=== PATIENT | female | born 1950 | race Caucasian/White ===

== ENCOUNTER 2017-07-02 12:49 | Inpatient (IN) | payer OTHER, MEDICAID ==
[2017-07-02 15:12] VITALS: BMI 44.1
[2017-07-02 15:37] LABS: BASOPHILS # (AUTO) 0.1 X10^3/uL (0.0-0.1); BASOPHILS % (AUTO) 1.6 % (0.2-1.0); EOSINOPHILS # (AUTO) 0.3 x10^3/uL (0.0-0.2); EOSINOPHILS % (AUTO) 4.1 % (0.9-2.9); HEMATOCRIT 37.4 % (36.0-47.0); HEMOGLOBIN 12.5 g/dL (12.0-16.0); LYMPHOCYTES # (AUTO) 1.5 X10^3/uL (1.3-2.9); LYMPHOCYTES % (AUTO) 22.7 % (21.0-51.0); MEAN CORPUSCULAR HGB CONC 33.5 g/dL (33.0-35.0); MEAN CORPUSCULAR VOLUME 92.5 fL (80.0-100.0); MEAN PLATELET VOLUME 9.2 fL (7.4-11.0); MONOCYTES # (AUTO) 0.7 x10^3/uL (0.3-0.8); MONOCYTES % (AUTO) 9.5 % (0.0-13.0); NEUTROPHILS # (AUTO) 4.2 x10^3/uL (2.2-4.8); NEUTROPHILS % (AUTO) 62.1 % (42.0-75.0); PLATELET COUNT 217 X10^3/uL (150.0-450.0); RED BLOOD COUNT 4.05 X10^6/uL (3.5-5.4); RED CELL DISTRIBUTION WIDTH 13.6 % (11.6-16.5); WHITE BLOOD COUNT 6.8 X10^3/uL (3.6-10.0)
[2017-07-02 15:42] LABS: ALANINE AMINOTRANSFERASE 30 Units/L (12-78); ALBUMIN 3.5 g/dL (3.4-5.0); ALKALINE PHOSPHATASE 38 Units/L (46-116); ASPARTATE AMINO TRANSFERASE 19 Units/L (15-37); BLOOD UREA NITROGEN 21 mg/dL (7-18); CALCIUM 9.2 mg/dL (8.5-10.1); CARBON DIOXIDE 33.5 mmol/L (21-32); CHLORIDE 104 mmol/L (98-107); CREATININE 1.48 mg/dL (0.55-1.02); SODIUM 141 mmol/L (136-145); TOTAL PROTEIN 6.9 g/dL (6.4-8.2); eGFR BLACK RACES 45 (>60); eGFR NON BLACK RACES 38 (>60)
[2017-07-02] MEDS ORDERED: TEFLARO IV SCH (16:00)
[2017-07-02] MEDS: NS 1000 ML 1,000 ML IV SCH (16:04)
[2017-07-02] MEDS: TEFLARO 600 MG in NS 50 ML IV 50 ML IV SCH (16:04)
--- NOTE | 2017-07-02 16:07 | RAD ---
HISTORY: Shortness of breath Study: Portable chest Comparison: None Findings: The trachea is midline. The cardiac silhouette is unremarkable. The lungs are clear without focal i nfiltrate or effusion. The bony thorax is unremarkable. IMPRESSION: 1. No acute cardiopulmonary disease. Reported By:
[2017-07-02 18:30] LABS: BILIRUBIN,URINE NEGATIVE (NEGATIVE); BLOOD/HEMOGLOBIN,URINE NEGATIVE (NEGATIVE); GLUCOSE, URINE NEGATIVE (NEGATIVE); KETONES,URINE NEGATIVE (NEGATIVE); LEUKOCYTE ESTERASE ,URINE 1+ (NEGATIVE); NITRITES,URINE NEGATIVE (NEGATIVE); PROTEIN,URINE 1+ (NEGATIVE); UROBILINOGEN,URINE NORMAL (NORMAL)
[2017-07-02 18:37] LABS: APPEARANCE,URINE HAZY (CLEAR); BACTERIA,URINE TRACE /HPF (NEGATIVE); COLOR,URINE YELLOW (YELLOW); MUCUS,URINE FEW /HPF (NEGATIVE); RBC,URINE 0 /HPF (NEGATIVE); SQUAMOUS EPITHELIAL CELL,UR RARE /HPF (NEGATIVE)
[2017-07-03] MEDS: NS 1000 ML 1,000 ML IV SCH ×2 (04:38→17:08)
[2017-07-03 05:35] LABS: BASOPHILS # (AUTO) 0.1 X10^3/uL (0.0-0.1); BASOPHILS % (AUTO) 1.2 % (0.2-1.0); EOSINOPHILS # (AUTO) 0.3 x10^3/uL (0.0-0.2); EOSINOPHILS % (AUTO) 4.5 % (0.9-2.9); HEMATOCRIT 37.1 % (36.0-47.0); HEMOGLOBIN 12.2 g/dL (12.0-16.0); LYMPHOCYTES # (AUTO) 1.5 X10^3/uL (1.3-2.9); LYMPHOCYTES % (AUTO) 22.3 % (21.0-51.0); MEAN CORPUSCULAR HEMOGLOBIN 31.3 pg (27.0-34.0); MEAN PLATELET VOLUME 9.3 fL (7.4-11.0); MONOCYTES # (AUTO) 0.7 x10^3/uL (0.3-0.8); MONOCYTES % (AUTO) 9.9 % (0.0-13.0); NEUTROPHILS # (AUTO) 4.1 x10^3/uL (2.2-4.8); NEUTROPHILS % (AUTO) 62.1 % (42.0-75.0); PLATELET COUNT 182 X10^3/uL (150.0-450.0); RED BLOOD COUNT 3.91 X10^6/uL (3.5-5.4); RED CELL DISTRIBUTION WIDTH 13.4 % (11.6-16.5); WHITE BLOOD COUNT 6.6 X10^3/uL (3.6-10.0)
[2017-07-03] MEDS ORDERED: NORCO 7.5/325 MG TAB PO PRN ×2 (05:53→11:32)
[2017-07-03 05:54] LABS: ALBUMIN 3.2 g/dL (3.4-5.0); CALCIUM 8.7 mg/dL (8.5-10.1); COR CA(FOR HYPOALB) 9.3 mg/dL (8.5-10.1); CREATININE 1.57 mg/dL (0.55-1.02); TOTAL PROTEIN 6.4 g/dL (6.4-8.2)
[2017-07-03] MEDS: TEFLARO 600 MG in NS 50 ML IV 50 ML IV SCH ×2 (09:14→21:03)
[2017-07-03] MEDS ORDERED: PREVNAR 13 IM ONE (11:03)
[2017-07-03] MEDS ORDERED: AFLURIA IM ONE (11:03)
[2017-07-03] MEDS ORDERED: ATARAX TAB 25 MG PO PRN (11:32)
[2017-07-03] MEDS ORDERED: [UNRECOGNIZED DRUG - OTHER] PO SCH (11:45)
[2017-07-03] MEDS ORDERED: CALCIUM CARBONATE PO SCH (11:45)
[2017-07-03] MEDS ORDERED: MAGNESIUM PO SCH (11:45)
[2017-07-03] MEDS ORDERED: ASPIRIN PO SCH (11:45)
[2017-07-03] MEDS ORDERED: PAROXETINE HCL 30 MG PO SCH (11:45)
[2017-07-03] MEDS ORDERED: Atrovent NEB TX 0.02% NEB SCH (12:00)
[2017-07-03] MEDS: DUONEB 0.5 MG/3 MG NEB SCH ×2 (12:00→17:51)
[2017-07-03] MEDS ORDERED: PROVENTIL NEB TX 0.083% 2.5MG/ 3ML NEB SCH ×2 (12:00)
[2017-07-03] MEDS: ZETIA TAB 10 MG PO SCH (13:06)
[2017-07-03] MEDS: FOLIC ACID TAB 1 MG PO SCH (13:06)
[2017-07-03] MEDS: COZAAR PO SCH (13:06)
[2017-07-03] MEDS: COREG TAB 6.25 MG PO SCH ×2 (13:06→21:02)
[2017-07-03] MEDS: SYNTHROID 175 mcg TAB PO SCH (13:07)
[2017-07-03] MEDS: NexIUM PO SCH (13:07)
--- NOTE | 2017-07-03 14:35 | DR.H&P ---
H&P - History & Physical for Day of: H&P Date: 07/02/17 - Chief Complaint Chief Complaint: lle cellulitis - Allergies Allergies/Adverse Reactions: Allergies Allergy/AdvReac Type Severity Reaction Status Date / Time No Known Drug Allergies Allergy Verified 07/02/17 14:39 - History of Present Illness History of Present Illness: 66 white female patient of Dr. Flores's private practice who was admitted after failing to improve with outpatient therapy for left lower extremity cellulitis. Patient has localized redness and edema to left lower ankle coming up to left calf. Patient has a history of COPD and neuropathy patient denies any cardiac history and has stable blood pressure. Patient admitted for further evaluation of cellulitis including blood cultures and treatment with IV antibiotics. - Past Medical History Past Medical History: Arthritis, COPD, Hypertension - Past Surgical History Surgical History: QA SPECIALIST Surgery, Hysterectomy - Family History Family Medical History: Heart Failure, Hypertension - Social History Does patient currently use any type of tobacco product: No Have you used tobacco products in the last 12 months: No Type of Tobacco Use: Cigarettes Does any household member use tobacco: Yes Alcohol Use: None Drug Use: Prescription Drugs - Medications Home Medications: Albuterol Neb 2.5MG/ 3Ml [ALBUTEROL NEB 2.5MG/ 3ML *] 1 amb NEB Q6RESP 07/02/17 [History Confirmed 07/02/17] Aspirin/Calcium Carbonate/Mag [Aspirin Buffered 325 mg Tab] 1 tab PO DAILY 07/02 [History Confirmed 07/02/17] Carvedilol [COREG TAB 6.25 MG *] 1 tab PO BID 07/02/17 [History Confirmed ] Ergocalciferol (Vitamin D2) [Vitamin D2] 1 tab PO QMONTH 07/02/17 [History Confirmed 07/02/17] Esomeprazole Magnesium [NEXIUM 40 MG *] 1 tab PO DAILY 07/02/17 [History Confirmed 07/02/17] Ezetimibe [ZETIA 10 MG *] 1 tab PO DAILY 07/02/17 [History Confirmed 07/02/17] Fenofibrate [TRICOR 145 MG *] 1 tab PO HS 07/02/17 [History Confirmed 07/02/17] Folic Acid [FOLIC ACID TAB 1 MG *] 1 mg PO DAILY 07/02/17 [History Confirmed ] Gabapentin [NEURONTIN CAP 100 MG *] 200 mg PO HS 07/02/17 [History Confirmed ] Hydrocodone/Acetaminophen [Hydrocodon-Acetaminoph 7.5-325] 1 tab PO BID PRN [History Confirmed 07/02/17] Hydroxyzine HCl 25 mg Tab [ATARAX *] 25 mg PO Q4-8H PRN 07/02/17 [History Confirmed 07/02/17] Ipratropium Egan 1 amb NEB Q6RESP 07/02/17 [History Confirmed 07/02/17] Levothyroxine Sodium [SYNTHROID 175 mcg *] 1 tab PO DAILY 07/02/17 [History Confirmed 07/02/17] Losartan Potassium [LOSARTAN POTASSIUM 50 MG *] 50 mg PO DAILY 07/02/17 [ History Confirmed 07/02/17] Montelukast Sodium [SINGULAIR TAB 10 MG *] 10 mg PO HS 07/02/17 [History Confirmed 07/02/17] Paroxetine HCl 30 mg PO DAILY 07/02/17 [History Confirmed 07/02/17] Quetiapine Fumarate [SEROQUEL 100 MG *] 100 mg PO HS 07/02/17 [History Confirmed 07/02/17] Simvastatin [ZOCOR 20 MG *] 1 tab PO HS 07/02/17 [History Confirmed 07/02/17] Travoprost [TRAVATAN Z (OPHTH) 0.004 % 2.5 ML *] 1 drops EACHEYE HS 07/02/17 [ History Confirmed 07/02/17] - Review of Systems Constitutional: Chills Eyes: No Symptoms Reported ENT: No Symptoms Reported Respiratory: Shortness of Breath, Wheezing Cardiovascular: No Symptoms Reported Gastrointestinal: No Symptoms Reported Genitourinary: No Symptoms Reported Musculoskeletal: Leg Pain Skin: Rash Neurological: No Symptoms Reported - Physical Exam Vital Signs: Temperature 98.6 F Pulse Rate [Right Brachial] 60 Respiratory Rate 20 Blood Pressure [Right Arm] 162/70 O2 Sat by Pulse Oximetry 97 Oriented: Normal Eyes: Normal Ear: Normal Nose: Normal Throat: Normal Respiratory: RLL Diminished, LLL Diminished Cardiovascular: Normal : Normal Auscultation: Bowel Sounds: Normal Palpation: Normal Tenderness: Normal Skin: Red, Tender (LLE), Hot Mood Description: Calm Speech Pattern: Clear, Appropriate - Assessment/Plan (1) Cellulitis, leg Qualifiers: Laterality: left Qualified Code(s): L03.116 - Cellulitis of left lower limb Status: Acute Plan: BLOOD CULTURES, CBC CMP. IV ATBX, REPEAT AM LABS (2) COPD (chronic obstructive pulmonary disease) Status: Acute Plan: RESP CONSULT
--- NOTE | 2017-07-03 14:40 | PCM.PROG ---
Progress Note - Progress Note for Day of Date: 07/03/17 - Subjective Subjective: 66-year-old white female admitted 1 day ago with left lower extremity cellulitis. Patient has been receiving IV antibiotics, teflaro with improved rEDNESS THIS a.m. Patient's blood cultures are still pending. We'll P repeat a.m. labs and continue current plan therapy. - Past Medical Family Social History Past Med/Fam/Surg Hx: No changes since H&P Allergies: Allergies No Known Drug Allergies Allergy (Verified 07/02/17 14:39) - Review of Systems ROS: No change since H&P - Vital Signs and I&O's Vital Signs: Temperature 98.6 F Pulse Rate [Right Brachial] 60 Respiratory Rate 20 Blood Pressure [Right Arm] 162/70 O2 Sat by Pulse Oximetry 97 Intake and Output: Intake & Output 07/01/17 07/02/17 07/03/17 07/04/17 11:59 11:59 11:59 11:59 Intake Total 1078 Output Total 0 Balance 1078 - Physical Exam Oriented: Normal Eyes: Normal Ear: Normal Nose: Normal Throat: Normal Respiratory: Diminished Cardiovascular: Normal : Normal Auscultation: Bowel Sounds: Normal Tenderness: Normal Skin: Red, Tender (LLE), Hot Mood Description: Calm Speech Pattern: Clear, Appropriate - Laboratory and Diagnostics Result Diagrams: 07/03/17 04:05 07/03/17 04:05 Labs: Laboratory WBC 6.6 X10^3/uL (3.6-10.0) 07/03/17 04:05 RBC 3.91 X10^6/uL (3.5-5.4) 07/03/17 04:05 Hgb 12.2 g/dL (12.0-16.0) 07/03/17 04:05 Hct 37.1 % (36.0-47.0) 07/03/17 04:05 MCV 95.0 fL (80.0-100.0) 07/03/17 04:05 MCH 31.3 pg (27.0-34.0) 07/03/17 04:05 MCHC 33.0 g/dL (33.0-35.0) 07/03/17 04:05 RDW 13.4 % (11.6-16.5) 07/03/17 04:05 Plt Count 182 X10^3/uL (150.0-450.0) 07/03/17 04:05 MPV 9.3 fL (7.4-11.0) 07/03/17 04:05 Neut % 62.1 % (42.0-75.0) 07/03/17 04:05 Lymph % 22.3 % (21.0-51.0) 07/03/17 04:05 Wright % 9.9 % (0.0-13.0) 07/03/17 04:05 Eos % 4.5 % (0.9-2.9) H 07/03/17 04:05 Baso % 1.2 % (0.2-1.0) H 07/03/17 04:05 Neut # 4.1 x10^3/uL (2.2-4.8) 07/03/17 04:05 Lymph # 1.5 X10^3/uL (1.3-2.9) 07/03/17 04:05 Wright # 0.7 x10^3/uL (0.3-0.8) 07/03/17 04:05 Eos # 0.3 x10^3/uL (0.0-0.2) H 07/03/17 04:05 Baso # 0.1 X10^3/uL (0.0-0.1) 07/03/17 04:05 Absolute Nucleated RBC 0.0 /100WBC 07/03/17 04:05 Sodium 142 mmol/L (136-145) 07/03/17 04:05 Corrected Sodium 142 mmol/L (136-145) 07/03/17 04:05 Potassium 4.0 mmol/L (3.5-5.1) 07/03/17 04:05 Chloride 106 mmol/L (98-107) 07/03/17 04:05 Carbon Dioxide 32.0 mmol/L (21-32) 07/03/17 04:05 BUN 21 mg/dL (7-18) H 07/03/17 04:05 Creatinine 1.57 mg/dL (0.55-1.02) H 07/03/17 04:05 Est GFR (MDRD) Af Amer 42 (>60) L 07/03/17 04:05 Est GFR (MDRD) Non-Af 35 (>60) L 07/03/17 04:05 Glucose 111 mg/dL (65-99) H 07/03/17 04:05 Calcium 8.7 mg/dL (8.5-10.1) 07/03/17 04:05 Corrected Calcium 9.3 mg/dL (8.5-10.1) 07/03/17 04:05 Total Bilirubin 0.20 mg/dL (0.2-1.0) 07/03/17 04:05 AST 18 Units/L (15-37) 07/03/17 04:05 ALT 27 Units/L (12-78) 07/03/17 04:05 Alkaline Phosphatase 36 Units/L (46-116) L 07/03/17 04:05 Total Protein 6.4 g/dL (6.4-8.2) 07/03/17 04:05 Albumin 3.2 g/dL (3.4-5.0) L 07/03/17 04:05 Globulin 3.2 g/dL (2.5-4.5) 07/03/17 04:05 Albumin/Globulin Ratio 1.0 Ratio (1.1-2.1) L 07/03/17 04:05 Specimen Type Clean catch urine 07/02/17 18:19 Urine Color Yellow (YELLOW) 07/02/17 18:19 Urine Appearance Hazy (CLEAR) 07/02/17 18:19 Urine pH 5.0 (5.0 - 8.0) 07/02/17 18:19 Ur Specific [place] 1.015 (1.000-1.030) 07/02/17 18:19 Urine Protein 1+ (NEGATIVE) 07/02/17 18:19 Urine Glucose (UA) Negative (NEGATIVE) 07/02/17 18:19 Urine Ketones Negative (NEGATIVE) 07/02/17 18:19 Urine Occult Blood Negative (NEGATIVE) 07/02/17 18:19 Urine Nitrite Negative (NEGATIVE) 07/02/17 18:19 Urine Bilirubin Negative (NEGATIVE) 07/02/17 18:19 Urine Urobilinogen Normal (NORMAL) 07/02/17 18:19 Ur Leukocyte Esterase 1+ (NEGATIVE) 07/02/17 18:19 Urine RBC 0 /HPF (NEGATIVE) 07/02/17 18:19 Urine WBC 0-3 /HPF (NEGATIVE) 07/02/17 18:19 Ur Squamous Epith Cells Rare /HPF (NEGATIVE) 07/02/17 18:19 Urine Bacteria Trace /HPF (NEGATIVE) 07/02/17 18:19 Urine Mucus Few /HPF (NEGATIVE) 07/02/17 18:19 Ur Culture Indicated? No/not indicated 07/02/17 18:19 - Plan (1) Cellulitis, leg Status: Acute Qualifiers: Laterality: left Qualified Code(s): L03.116 - Cellulitis of left lower limb Plan: BLOOD CULTURES, CBC CMP. IV ATBX, REPEAT AM LABS. VASCULAR STUDIES, RAVI' S (2) COPD (chronic obstructive pulmonary disease) Status: Acute Plan: RESP CONSULT
[2017-07-03] MEDS ORDERED: SINGULAIR TAB 10 MG PO SCH (21:00)
[2017-07-03] MEDS ORDERED: ZOCOR TAB 20 MG PO SCH (21:00)
[2017-07-03] MEDS ORDERED: NEURONTIN CAP 100 MG PO SCH (21:00)
[2017-07-03] MEDS ORDERED: TRICOR TAB 145 MG PO SCH (21:00)
[2017-07-03] MEDS ORDERED: TRAVATAN Z EACHEYE SCH (21:00)
[2017-07-03] MEDS ORDERED: SEROquel TAB 100 MG PO SCH (21:00)
[2017-07-04] MEDS: DUONEB 0.5 MG/3 MG NEB SCH ×2 (00:10→05:23)
[2017-07-04] MEDS: NS 1000 ML 1,000 ML IV SCH (05:47)
[2017-07-04 06:34] LABS: CALCIUM 8.8 mg/dL (8.5-10.1); CARBON DIOXIDE 31.9 mmol/L (21-32); COR CA(FOR HYPOALB) 9.6 mg/dL (8.5-10.1); CREATININE 1.29 mg/dL (0.55-1.02); TOTAL PROTEIN 6.1 g/dL (6.4-8.2)
[2017-07-04 06:40] LABS: BASOPHILS # (AUTO) 0.1 X10^3/uL (0.0-0.1); EOSINOPHILS # (AUTO) 0.3 x10^3/uL (0.0-0.2); EOSINOPHILS % (AUTO) 3.9 % (0.9-2.9); HEMATOCRIT 36.1 % (36.0-47.0); HEMOGLOBIN 11.8 g/dL (12.0-16.0); LYMPHOCYTES # (AUTO) 1.3 X10^3/uL (1.3-2.9); LYMPHOCYTES % (AUTO) 19.8 % (21.0-51.0); MEAN CORPUSCULAR HGB CONC 32.8 g/dL (33.0-35.0); MEAN CORPUSCULAR VOLUME 94.4 fL (80.0-100.0); MEAN PLATELET VOLUME 9.6 fL (7.4-11.0); MONOCYTES # (AUTO) 0.6 x10^3/uL (0.3-0.8); MONOCYTES % (AUTO) 8.6 % (0.0-13.0); NEUTROPHILS # (AUTO) 4.3 x10^3/uL (2.2-4.8); NEUTROPHILS % (AUTO) 66.7 % (42.0-75.0); PLATELET COUNT 141 X10^3/uL (150.0-450.0); RED BLOOD COUNT 3.82 X10^6/uL (3.5-5.4); RED CELL DISTRIBUTION WIDTH 13.8 % (11.6-16.5); WHITE BLOOD COUNT 6.5 X10^3/uL (3.6-10.0)
[2017-07-04 07:21] LABS: PLATELET MORPHOLOGY COMMENT NORMAL (NORMAL)
[2017-07-04] MEDS: NexIUM PO SCH (08:45)
[2017-07-04] MEDS: FOLIC ACID TAB 1 MG PO SCH (08:45)
[2017-07-04] MEDS: ZETIA TAB 10 MG PO SCH (08:45)
[2017-07-04] MEDS: SYNTHROID 175 mcg TAB PO SCH (08:45)
[2017-07-04] MEDS: COZAAR PO SCH (08:45)
[2017-07-04] MEDS: COREG TAB 6.25 MG PO SCH (08:45)
[2017-07-04] MEDS: TEFLARO 600 MG in NS 50 ML IV 50 ML IV SCH (08:46)
[2017-07-04] MEDS ORDERED: PAXIL PO SCH (09:00)
[2017-07-04] MEDS ORDERED: ASPIRIN PO SCH (09:00)
[2017-07-04 14:07] VITALS: BP 134/78
--- NOTE | 2017-07-04 15:12 | VAS ---
HISTORY: Left lower extremity cellulitis Study: Arterial Doppler ultrasound of the lower extremity Comparison: None Technique: Multiple michel scale and color flow Doppler images of the right and left lower extremity ar terial system were obtained. Interrogation of the common femoral artery, superficial femoral artery, popliteal artery, and tibial arteries was performed. Findings: Triphasic waveforms are seen throughout the right and left lower extremity from the common femoral ar terial system to the tibial runoff. No doubling or tripling of velocities are appreciated to suggest tendon and fluid significant stenosis. No sonographic evidence of occlusive thrombus is appreciated. IMPRESSION: 1. Unremarkable sonographic evaluation of the right and left lower extremity arterial system as note d above. Reported By:
== END 2017-07-04 14:43 | disposition home health service (06) | DRG 603 ==
LOC: MED/SURG 12:49
PROVIDERS: ADMIT Internal Medicine; ATTEND Internal Medicine
PROC: 3E0234Z Introduction of Serum, Toxoid and Vaccine into Muscle, Percutaneous Approach (ICD-10-PCS; principal; 2017-07-03)
DX: L03.116 Cellulitis of left lower limb (principal); R60.0 Localized edema; J44.9 Chronic obstructive pulmonary disease, unspecified; M13.89 Other specified arthritis, multiple sites; I10 Essential (primary) hypertension; I80.8 Phlebitis and thrombophlebitis of other sites; R26.89 Other abnormalities of gait and mobility; R13.11 Dysphagia, oral phase; Z23 Encounter for immunization
CPT/HCPCS: 36415; 71010; 80053; 81001; 85025; 87040; 90686; 93925; 94760; A4216; A4222; 90670; J0712; J7620

== ENCOUNTER 2021-05-03 15:08 | Inpatient (IN) ==
[2021-05-03] MEDS ORDERED: NS 1000 ML 1,000 ML IV ONE (16:27)
[2021-05-03] MEDS: NS 1000 ML 1,000 ML IV SCH (17:12)
[2021-05-03 17:14] LABS: BASOPHILS # (AUTO) 0.2 X10^3/uL (0.0-0.1); BASOPHILS % (AUTO) 0.7 % (0.2-1.0); EOSINOPHILS # (AUTO) 0.3 x10^3/uL (0.0-0.2); EOSINOPHILS % (AUTO) 1.1 % (0.9-2.9); HEMATOCRIT 38.2 % (36.0-47.0); HEMOGLOBIN 12.4 g/dL (12.0-16.0); LYMPHOCYTES # (AUTO) 2.8 X10^3/uL (1.3-2.9); LYMPHOCYTES % (AUTO) 12.4 % (21.0-51.0); MEAN CORPUSCULAR HEMOGLOBIN 30.7 pg (27.0-34.0); MEAN CORPUSCULAR HGB CONC 32.6 g/dL (33.0-35.0); MEAN CORPUSCULAR VOLUME 94.3 fL (80.0-100.0); MONOCYTES % (AUTO) 8.5 % (0.0-13.0); NEUTROPHILS # (AUTO) 17.6 x10^3/uL (2.2-4.8); NEUTROPHILS % (AUTO) 77.3 % (42.0-75.0); PLATELET COUNT 285 X10^3/uL (150.0-450.0); RED BLOOD COUNT 4.05 X10^6/uL (3.5-5.4); RED CELL DISTRIBUTION WIDTH 14.2 % (11.6-16.5); WHITE BLOOD COUNT 22.8 X10^3/uL (3.6-10.0)
[2021-05-03 17:20] LABS: BILIRUBIN,URINE NEGATIVE (NEGATIVE); BLOOD/HEMOGLOBIN,URINE NEGATIVE (NEGATIVE); GLUCOSE, URINE NEGATIVE (NEGATIVE); KETONES,URINE NEGATIVE (NEGATIVE); LEUKOCYTE ESTERASE ,URINE NEGATIVE (NEGATIVE); NITRITES,URINE NEGATIVE (NEGATIVE); PROTEIN,URINE NEGATIVE (NEGATIVE); UROBILINOGEN,URINE NORMAL (NORMAL)
[2021-05-03 17:21] LABS: APPEARANCE,URINE CLEAR (CLEAR); COLOR,URINE STRAW (YELLOW)
[2021-05-03 17:27] LABS: ALANINE AMINOTRANSFERASE 25 Units/L (12-78); ALBUMIN 3.5 g/dL (3.4-5.0); ALKALINE PHOSPHATASE 55 Units/L (46-116); ASPARTATE AMINO TRANSFERASE 13 Units/L (15-37); BLOOD UREA NITROGEN 14 mg/dL (7-18); CALCIUM 9.4 mg/dL (8.5-10.1); CARBON DIOXIDE 32.4 mmol/L (21-32); CHLORIDE 104 mmol/L (98-107); SODIUM 142 mmol/L (136-145); TOTAL PROTEIN 6.9 g/dL (6.4-8.2); eGFR NON BLACK RACES 43 (>60)
[2021-05-03 17:48] LABS: PLATELET MORPHOLOGY COMMENT NORMAL (NORMAL)
--- NOTE | 2021-05-03 17:53 | DR.H&P ---
H&P - History & Physical for Day of: H&P Date: 05/03/21 - Chief Complaint Chief Complaint: dehydration, weakness - History of Present Illness History of Present Illness: The patient is a 70 year old female that is a direct admit per Dr. Flores's office. Patient was discharged Saturday from [facility] secondary to sialidenitis. Patient reports that she was told that she was to stay for several more days for more antibiotic therapy but was later discharged. Reports that she has been having difficulty swallowing. Reports severe mouth pain and dehydration. Reports that she has been able to drink by mouth but is unable to tolerate food by mouth. Does complain of severe weakness. Reports that her blood pressures have been elevated at home. BP in office was 185/100. PMH of COPD, CHF, obesity and diabetes. Will be admitted for further evaluation. - Past Medical History Past Medical History: Arthritis, COPD, Hypertension - Past Surgical History Surgical History: STE[employer] TOE [employer]ERTER Surgery, Hysterectomy, Thyroidectomy, Other - Family History Family Medical History: Cancer - Social History Does patient currently use any type of tobacco product: No Have you used tobacco products in the last 12 months: No Type of Tobacco Use: None Does any household member use tobacco: No Alcohol Use: None Drug Use: None - Medications Home Medications: No Known Drug Allergies Allergy (Verified 07/02/17 14:39) - Review of Systems Constitutional: See HPI Eyes: See HPI ENT: See HPI, Ear Pain, Mouth Pain, Throat Pain Respiratory: See HPI Cardiovascular: See HPI Gastrointestinal: See HPI Genitourinary: See HPI Musculoskeletal: See HPI Skin: See HPI Neurological: See HPI - Physical Exam Vital Signs: Temperature 98.1 F Pulse Rate [Left Radial] 60 Respiratory Rate 23 Blood Pressure [Right Arm] 142/79 O2 Sat by Pulse Oximetry 96 Oriented: Normal Eyes: Normal Ear: Normal Nose: Normal Throat: Red Respiratory: Clear Throughout Cardiovascular: Normal : Normal Auscultation: Bowel Sounds: Normal Palpation: Normal Tenderness: Normal Skin: Decreased Turgur Musculoskeletal: Normal Psychiatric: Depression Mood Description: Calm, Appropriate Affect: Flat Speech Pattern: Clear - Assessment/Plan (1) Dehydration Status: Acute (2) Weakness Status: Acute - Allergies Allergies/Adverse Reactions: Allergies Allergy/AdvReac Type Severity Reaction Status Date / Time No Known Drug Allergies Allergy Verified 07/02/17 14:39
[2021-05-03] MEDS: INVANZ INJ 1 GM VIAL 1 GM in NS 100 ML IV + SPIKE MINIBAG* 100 ML IV SCH (18:28)
[2021-05-03] MEDS ORDERED: DUONEB 0.5 MG/3 MG (3 mL) NEB PRN (18:33)
[2021-05-04] MEDS: TYLENOL 325 MG TAB PO PRN ×2 (02:03→21:44)
[2021-05-04] MEDS: NS 1000 ML 1,000 ML IV SCH ×4 (02:07→19:37)
[2021-05-04] MEDS: INVANZ INJ 1 GM VIAL 1 GM in NS 100 ML IV + SPIKE MINIBAG* 100 ML IV SCH (08:54)
[2021-05-04] MEDS ORDERED: BUSPAR PO PRN (09:32)
[2021-05-04 10:11] LABS: BASOPHILS # (AUTO) 0.1 X10^3/uL (0.0-0.1); BASOPHILS % (AUTO) 0.8 % (0.2-1.0); EOSINOPHILS # (AUTO) 0.3 x10^3/uL (0.0-0.2); EOSINOPHILS % (AUTO) 2.1 % (0.9-2.9); HEMOGLOBIN 11.6 g/dL (12.0-16.0); LYMPHOCYTES # (AUTO) 1.8 X10^3/uL (1.3-2.9); LYMPHOCYTES % (AUTO) 12.9 % (21.0-51.0); MEAN PLATELET VOLUME 8.8 fL (7.4-11.0); MONOCYTES # (AUTO) 1.3 x10^3/uL (0.3-0.8); MONOCYTES % (AUTO) 9.3 % (0.0-13.0); NEUTROPHILS # (AUTO) 10.5 x10^3/uL (2.2-4.8); NEUTROPHILS % (AUTO) 74.9 % (42.0-75.0); PLATELET COUNT 181 X10^3/uL (150.0-450.0); RED BLOOD COUNT 3.73 X10^6/uL (3.5-5.4); RED CELL DISTRIBUTION WIDTH 14.1 % (11.6-16.5)
[2021-05-04 10:31] LABS: ALANINE AMINOTRANSFERASE 24 Units/L (12-78); ALKALINE PHOSPHATASE 46 Units/L (46-116); ASPARTATE AMINO TRANSFERASE 19 Units/L (15-37); BLOOD UREA NITROGEN 10 mg/dL (7-18); CALCIUM 8.6 mg/dL (8.5-10.1); CARBON DIOXIDE 31.2 mmol/L (21-32); CHLORIDE 108 mmol/L (98-107); COR CA(FOR HYPOALB) 9.4 mg/dL (8.5-10.1); CREATININE 1.14 mg/dL (0.55-1.02); SODIUM 143 mmol/L (136-145); TOTAL PROTEIN 5.8 g/dL (6.4-8.2); eGFR NON BLACK RACES 50 (>60)
[2021-05-04 10:39] VITALS: BMI 40.2
[2021-05-04] MEDS: COREG TAB 6.25 MG PO SCH ×2 (10:39→21:41)
[2021-05-04] MEDS ORDERED: DUONEB 0.5 MG/3 MG (3 mL) NEB ONE (12:00)
[2021-05-04] MEDS: DUONEB 0.5 MG/3 MG (3 mL) NEB SCH ×3 (12:12→21:05)
[2021-05-04] MEDS: PROTONIX INJ 40 MG VIAL IVP SCH ×2 (14:37→21:42)
[2021-05-04] MEDS: LOVENOX INJ 40 MG SYR SC SCH (14:37)
[2021-05-04] MEDS: NYSTATIN SUSP PO SCH ×3 (14:37→21:41)
[2021-05-04] MEDS: DIFLUCAN 100 MG IV (MIX by PHARMACY)* 100 MG/50 ML BAG IV SCH (14:37)
[2021-05-04] MEDS: NORCO 7.5/325 MG TAB PO PRN (15:12)
[2021-05-04] MEDS: CLARITIN PO SCH (21:41)
[2021-05-04] MEDS: SINGULAIR TAB 10 MG PO SCH (21:42)
[2021-05-04] MEDS: TRICOR TAB 145 MG PO SCH (21:42)
[2021-05-04] MEDS: ZOCOR TAB 20 MG PO SCH (21:42)
[2021-05-05] MEDS: NORCO 7.5/325 MG TAB PO PRN ×2 (02:33→16:18)
[2021-05-05 06:34] LABS: BASOPHILS # (AUTO) 0.1 X10^3/uL (0.0-0.1); EOSINOPHILS # (AUTO) 0.4 x10^3/uL (0.0-0.2); EOSINOPHILS % (AUTO) 2.7 % (0.9-2.9); HEMATOCRIT 35.4 % (36.0-47.0); HEMOGLOBIN 11.6 g/dL (12.0-16.0); LYMPHOCYTES # (AUTO) 2.6 X10^3/uL (1.3-2.9); LYMPHOCYTES % (AUTO) 20.2 % (21.0-51.0); MEAN CORPUSCULAR HEMOGLOBIN 30.8 pg (27.0-34.0); MEAN CORPUSCULAR HGB CONC 32.7 g/dL (33.0-35.0); MEAN CORPUSCULAR VOLUME 94.3 fL (80.0-100.0); MEAN PLATELET VOLUME 9.1 fL (7.4-11.0); MONOCYTES # (AUTO) 1.3 x10^3/uL (0.3-0.8); MONOCYTES % (AUTO) 9.7 % (0.0-13.0); NEUTROPHILS # (AUTO) 8.6 x10^3/uL (2.2-4.8); NEUTROPHILS % (AUTO) 66.4 % (42.0-75.0); PLATELET COUNT 158 X10^3/uL (150.0-450.0); RED BLOOD COUNT 3.76 X10^6/uL (3.5-5.4); WHITE BLOOD COUNT 12.9 X10^3/uL (3.6-10.0)
[2021-05-05 06:53] LABS: ALANINE AMINOTRANSFERASE 21 Units/L (12-78); ALBUMIN 2.8 g/dL (3.4-5.0); ALKALINE PHOSPHATASE 45 Units/L (46-116); ASPARTATE AMINO TRANSFERASE 15 Units/L (15-37); BLOOD UREA NITROGEN 8 mg/dL (7-18); CALCIUM 8.5 mg/dL (8.5-10.1); CARBON DIOXIDE 30.3 mmol/L (21-32); CHLORIDE 109 mmol/L (98-107); COR CA(FOR HYPOALB) 9.5 mg/dL (8.5-10.1); CREATININE 1.13 mg/dL (0.55-1.02); SODIUM 142 mmol/L (136-145); TOTAL PROTEIN 5.7 g/dL (6.4-8.2); eGFR NON BLACK RACES 51 (>60)
[2021-05-05] MEDS: NS 1000 ML 1,000 ML IV SCH ×4 (07:26→19:57)
[2021-05-05] MEDS: LOVENOX INJ 40 MG SYR SC SCH (08:44)
[2021-05-05] MEDS: INVANZ INJ 1 GM VIAL 1 GM in NS 100 ML IV + SPIKE MINIBAG* 100 ML IV SCH (08:44)
[2021-05-05] MEDS: PROTONIX INJ 40 MG VIAL IVP SCH ×2 (08:44→21:23)
[2021-05-05] MEDS: PEPCID TAB 40 MG PO SCH (08:45)
[2021-05-05] MEDS: FOLIC ACID TAB 1 MG PO SCH (08:45)
[2021-05-05] MEDS: COZAAR PO SCH (08:45)
[2021-05-05] MEDS: PAXIL PO SCH (08:45)
[2021-05-05] MEDS: COREG TAB 6.25 MG PO SCH ×2 (08:45→21:23)
[2021-05-05] MEDS: SYNTHROID 175 mcg TAB PO SCH (08:46)
[2021-05-05] MEDS: NYSTATIN SUSP PO SCH ×4 (08:46→21:23)
[2021-05-05] MEDS: DUONEB 0.5 MG/3 MG (3 mL) NEB SCH ×4 (09:10→21:05)
[2021-05-05] MEDS: DIFLUCAN 100 MG IV (MIX by PHARMACY)* 100 MG/50 ML BAG IV SCH (10:58)
[2021-05-05] MEDS: CLARITIN PO SCH (21:22)
[2021-05-05] MEDS: SINGULAIR TAB 10 MG PO SCH (21:23)
[2021-05-05] MEDS: ZOCOR TAB 20 MG PO SCH (21:24)
[2021-05-05] MEDS: TRICOR TAB 145 MG PO SCH (21:24)
[2021-05-06] MEDS: NS 1000 ML 1,000 ML IV SCH ×2 (05:49→14:29)
[2021-05-06] MEDS ORDERED: NS 100 ML IV 100 ML ONE (07:49)
--- NOTE | 2021-05-06 08:52 | CT ---
HISTORYpain in left side of neck, swelling thyroid cancer. Thyroidectomy. Hypertension and COPDSTUDYSOFT TISSUE NECK WITH CONCOMPARISONCT neck 11/19/2019TECHNIQUEMultiple axial images of the neck soft tissues were obtained with IV contrast. Coronal and sagittal reformats were made and reviewed. Dose reduction techniques included Automated Exposure Control (AEC) and adjustment of mA and kV.FINDINGSI believe a BB marker was placed at the site of palpable swelling in the left neck. The BB marker is superficial to a left external jugular vein. No mass or lymph node at this location.No residual thyroid tissue is identified. No nodularity or mass in the thyroid fossa.Salivary glands have normal enhancement and size.No fluid in the sinuses or mucosal thickening to suggest sinusitis. Bilateral mastoid effusions are present these were not present on the prior study but most often due to a chronic sinusitis or upper respiratory infection.There is no significant lymphadenopathy or mass. Scattered small lymph nodes in the neck are not enlarged by imaging criteria. The pharyngeal, laryngeal, and tracheal airway are widely patent. Adenoids, tonsils, soft palate, epiglottis, and prevertebral soft tissues are not thickened.Lung apices are clear. No significant bone abnormality. The patient is edentulous carotid artery calcifications on both sides.IMPRESSION1. No mass or lymphadenopathy2. Mastoid effusions, probably chronicElectronically signed by: Juanito Wing (May 06, 2021 08:50:34)
[2021-05-06 09:00] LABS: BASOPHILS # (AUTO) 0.1 X10^3/uL (0.0-0.1); BASOPHILS % (AUTO) 0.6 % (0.2-1.0); EOSINOPHILS # (AUTO) 0.3 x10^3/uL (0.0-0.2); EOSINOPHILS % (AUTO) 2.8 % (0.9-2.9); HEMATOCRIT 36.5 % (36.0-47.0); HEMOGLOBIN 12.1 g/dL (12.0-16.0); LYMPHOCYTES # (AUTO) 1.5 X10^3/uL (1.3-2.9); MEAN CORPUSCULAR HEMOGLOBIN 31.4 pg (27.0-34.0); MEAN CORPUSCULAR HGB CONC 33.1 g/dL (33.0-35.0); MEAN CORPUSCULAR VOLUME 94.9 fL (80.0-100.0); MEAN PLATELET VOLUME 9.5 fL (7.4-11.0); MONOCYTES # (AUTO) 0.8 x10^3/uL (0.3-0.8); MONOCYTES % (AUTO) 7.1 % (0.0-13.0); NEUTROPHILS # (AUTO) 8.1 x10^3/uL (2.2-4.8); NEUTROPHILS % (AUTO) 75.5 % (42.0-75.0); PLATELET COUNT 147 X10^3/uL (150.0-450.0); RED BLOOD COUNT 3.85 X10^6/uL (3.5-5.4); WHITE BLOOD COUNT 10.8 X10^3/uL (3.6-10.0)
[2021-05-06] MEDS: DUONEB 0.5 MG/3 MG (3 mL) NEB SCH ×4 (09:00→20:10)
[2021-05-06 09:14] LABS: ALANINE AMINOTRANSFERASE 25 Units/L (12-78); ALKALINE PHOSPHATASE 49 Units/L (46-116); ASPARTATE AMINO TRANSFERASE 16 Units/L (15-37); BLOOD UREA NITROGEN 7 mg/dL (7-18); CALCIUM 8.7 mg/dL (8.5-10.1); CARBON DIOXIDE 33.6 mmol/L (21-32); CHLORIDE 107 mmol/L (98-107); COR CA(FOR HYPOALB) 9.5 mg/dL (8.5-10.1); SODIUM 144 mmol/L (136-145); TOTAL PROTEIN 6.3 g/dL (6.4-8.2); eGFR NON BLACK RACES 58 (>60)
[2021-05-06] MEDS: PAXIL PO SCH (09:21)
[2021-05-06] MEDS: PROTONIX INJ 40 MG VIAL IVP SCH (09:21)
[2021-05-06] MEDS: FOLIC ACID TAB 1 MG PO SCH (09:22)
[2021-05-06] MEDS: COREG TAB 6.25 MG PO SCH ×2 (09:22→20:58)
[2021-05-06] MEDS: INVANZ INJ 1 GM VIAL 1 GM in NS 100 ML IV + SPIKE MINIBAG* 100 ML IV SCH (09:22)
[2021-05-06] MEDS: SYNTHROID 175 mcg TAB PO SCH (09:22)
[2021-05-06] MEDS: COZAAR PO SCH (09:22)
[2021-05-06] MEDS: LOVENOX INJ 40 MG SYR SC SCH (09:23)
[2021-05-06] MEDS: NORCO 7.5/325 MG TAB PO PRN ×2 (09:37→21:25)
[2021-05-06] MEDS: PEPCID TAB 40 MG PO SCH (09:38)
[2021-05-06] MEDS: NYSTATIN SUSP PO SCH ×3 (09:38→20:56)
[2021-05-06] MEDS: MILK OF MAGNESIA PO SCH ×2 (11:28→20:57)
[2021-05-06] MEDS: DIFLUCAN 100 MG IV (MIX by PHARMACY)* 100 MG/50 ML BAG IV SCH (11:28)
[2021-05-06] MEDS: TRICOR TAB 145 MG PO SCH (20:57)
[2021-05-06] MEDS: ZOCOR TAB 20 MG PO SCH (20:58)
[2021-05-06] MEDS: CLARITIN PO SCH (20:59)
[2021-05-06] MEDS: PROTONIX TAB 40 MG PO SCH (20:59)
[2021-05-06] MEDS: SINGULAIR TAB 10 MG PO SCH (20:59)
[2021-05-06] MEDS ORDERED: RESTORIL CAP 15 MG PO PRN (22:11)
[2021-05-07 06:52] LABS: BASOPHILS # (AUTO) 0.1 X10^3/uL (0.0-0.1); BASOPHILS % (AUTO) 0.7 % (0.2-1.0); EOSINOPHILS # (AUTO) 0.2 x10^3/uL (0.0-0.2); HEMATOCRIT 31.3 % (36.0-47.0); HEMOGLOBIN 10.4 g/dL (12.0-16.0); LYMPHOCYTES # (AUTO) 1.5 X10^3/uL (1.3-2.9); LYMPHOCYTES % (AUTO) 18.8 % (21.0-51.0); MEAN CORPUSCULAR HEMOGLOBIN 31.5 pg (27.0-34.0); MEAN CORPUSCULAR HGB CONC 33.2 g/dL (33.0-35.0); MEAN CORPUSCULAR VOLUME 94.8 fL (80.0-100.0); MEAN PLATELET VOLUME 9.4 fL (7.4-11.0); MONOCYTES # (AUTO) 0.7 x10^3/uL (0.3-0.8); MONOCYTES % (AUTO) 9.2 % (0.0-13.0); NEUTROPHILS # (AUTO) 5.4 x10^3/uL (2.2-4.8); NEUTROPHILS % (AUTO) 68.3 % (42.0-75.0); PLATELET COUNT 109 X10^3/uL (150.0-450.0); WHITE BLOOD COUNT 7.8 X10^3/uL (3.6-10.0)
[2021-05-07 06:53] LABS: ALANINE AMINOTRANSFERASE 22 Units/L (12-78); ALBUMIN 2.6 g/dL (3.4-5.0); ALKALINE PHOSPHATASE 43 Units/L (46-116); ASPARTATE AMINO TRANSFERASE 17 Units/L (15-37); BLOOD UREA NITROGEN 6 mg/dL (7-18); CALCIUM 8.5 mg/dL (8.5-10.1); CARBON DIOXIDE 33.3 mmol/L (21-32); CHLORIDE 110 mmol/L (98-107); COR CA(FOR HYPOALB) 9.6 mg/dL (8.5-10.1); CREATININE 0.96 mg/dL (0.55-1.02); SODIUM 146 mmol/L (136-145); TOTAL PROTEIN 5.4 g/dL (6.4-8.2); eGFR NON BLACK RACES > 60 (>60)
[2021-05-07] MEDS: NYSTATIN SUSP PO SCH ×5 (08:19→20:27)
[2021-05-07] MEDS: FOLIC ACID TAB 1 MG PO SCH (08:19)
[2021-05-07] MEDS: MILK OF MAGNESIA PO SCH ×3 (08:19→20:27)
[2021-05-07] MEDS: COZAAR PO SCH (08:19)
[2021-05-07] MEDS: PAXIL PO SCH (08:19)
[2021-05-07] MEDS: COREG TAB 6.25 MG PO SCH ×2 (08:19→20:26)
[2021-05-07] MEDS: PROTONIX TAB 40 MG PO SCH ×2 (08:19→20:26)
[2021-05-07] MEDS: SYNTHROID 175 mcg TAB PO SCH (08:19)
[2021-05-07] MEDS: PEPCID TAB 40 MG PO SCH (08:20)
[2021-05-07] MEDS: INVANZ INJ 1 GM VIAL 1 GM in NS 100 ML IV + SPIKE MINIBAG* 100 ML IV SCH (08:21)
[2021-05-07] MEDS: NS 1000 ML 1,000 ML IV SCH ×3 (08:21→17:37)
[2021-05-07] MEDS: LOVENOX INJ 40 MG SYR SC SCH (08:22)
[2021-05-07] MEDS: DUONEB 0.5 MG/3 MG (3 mL) NEB SCH ×4 (10:00→21:10)
[2021-05-07] MEDS: NORCO 7.5/325 MG TAB PO PRN (14:04)
[2021-05-07] MEDS: SINGULAIR TAB 10 MG PO SCH (20:25)
[2021-05-07] MEDS: ZOCOR TAB 20 MG PO SCH (20:26)
[2021-05-07] MEDS: TRICOR TAB 145 MG PO SCH (20:26)
[2021-05-07] MEDS: CLARITIN PO SCH (20:26)
[2021-05-08] MEDS: NS 1000 ML 1,000 ML IV SCH ×3 (05:00→10:18)
[2021-05-08 05:49] LABS: BASOPHILS # (AUTO) 0.1 X10^3/uL (0.0-0.1); BASOPHILS % (AUTO) 0.8 % (0.2-1.0); EOSINOPHILS # (AUTO) 0.2 x10^3/uL (0.0-0.2); EOSINOPHILS % (AUTO) 2.8 % (0.9-2.9); HEMATOCRIT 33.7 % (36.0-47.0); HEMOGLOBIN 11.2 g/dL (12.0-16.0); LYMPHOCYTES # (AUTO) 1.2 X10^3/uL (1.3-2.9); LYMPHOCYTES % (AUTO) 18.2 % (21.0-51.0); MEAN CORPUSCULAR HEMOGLOBIN 31.1 pg (27.0-34.0); MEAN CORPUSCULAR HGB CONC 33.2 g/dL (33.0-35.0); MEAN CORPUSCULAR VOLUME 93.6 fL (80.0-100.0); MONOCYTES # (AUTO) 0.7 x10^3/uL (0.3-0.8); MONOCYTES % (AUTO) 10.3 % (0.0-13.0); NEUTROPHILS # (AUTO) 4.4 x10^3/uL (2.2-4.8); NEUTROPHILS % (AUTO) 67.9 % (42.0-75.0); PLATELET COUNT 128 X10^3/uL (150.0-450.0); WHITE BLOOD COUNT 6.4 X10^3/uL (3.6-10.0)
[2021-05-08 06:05] LABS: ALANINE AMINOTRANSFERASE 26 Units/L (12-78); ALKALINE PHOSPHATASE 50 Units/L (46-116); ASPARTATE AMINO TRANSFERASE 20 Units/L (15-37); BLOOD UREA NITROGEN 4 mg/dL (7-18); CALCIUM 8.9 mg/dL (8.5-10.1); CARBON DIOXIDE 33.7 mmol/L (21-32); CHLORIDE 110 mmol/L (98-107); COR CA(FOR HYPOALB) 9.7 mg/dL (8.5-10.1); CREATININE 1.11 mg/dL (0.55-1.02); SODIUM 147 mmol/L (136-145); TOTAL PROTEIN 6.2 g/dL (6.4-8.2); eGFR NON BLACK RACES 52 (>60)
[2021-05-08] MEDS: PROTONIX TAB 40 MG PO SCH (08:24)
[2021-05-08] MEDS: MILK OF MAGNESIA PO SCH (08:24)
[2021-05-08] MEDS: COREG TAB 6.25 MG PO SCH (08:24)
[2021-05-08] MEDS: PEPCID TAB 40 MG PO SCH (08:24)
[2021-05-08] MEDS: PAXIL PO SCH (08:24)
[2021-05-08] MEDS: SYNTHROID 175 mcg TAB PO SCH (08:24)
[2021-05-08] MEDS: NYSTATIN SUSP PO SCH ×2 (08:24→13:44)
[2021-05-08] MEDS: COZAAR PO SCH (08:24)
[2021-05-08] MEDS: FOLIC ACID TAB 1 MG PO SCH (08:24)
[2021-05-08] MEDS: LOVENOX INJ 40 MG SYR SC SCH (08:26)
[2021-05-08] MEDS: DUONEB 0.5 MG/3 MG (3 mL) NEB SCH (09:14)
[2021-05-08] MEDS: INVANZ INJ 1 GM VIAL 1 GM in NS 100 ML IV + SPIKE MINIBAG* 100 ML IV SCH (10:17)
[2021-05-08 12:54] VITALS: BP 136/68
== END 2021-05-08 14:15 | disposition home health service (06) | DRG 156 ==
LOC: OBS → OBSVTOIN 15:12 → MED/SURG 16:28
PROVIDERS: ADMIT Internal Medicine; ATTEND Internal Medicine
DX: Z20.822 Contact with and (suspected) exposure to COVID-19; J44.9 Chronic obstructive pulmonary disease, unspecified; R53.1 Weakness; K11.21 Acute sialoadenitis; R13.11 Dysphagia, oral phase; F41.8 Other specified anxiety disorders; E86.0 Dehydration; I10 Essential (primary) hypertension; F32.89 Other specified depressive episodes